=== PATIENT | male | born 1965 | race Caucasian/White ===

== ENCOUNTER → 2017-09-29 | Outpatient (CLI) | payer OTHER ==
[~2017-09-29] MED LIST: AMPH20TA2 PO; ATOR-24 PO; LINA1CAP PO; NXM/40 PO; RANI300T2 PO; TADA20TA PO
--- NOTE | 2017-09-29 09:06 | DIAGNOSTIC IMAGING REPORT ---
THYROID ULTRASONOGRAPHY CLINICAL HISTORY: Enteral thyroid function tests COMPARISON STUDY: No previous studies for comparison. FINDINGS: The right lobe measures 54 x 20 x 27 mm. The left lobe measures 56 x 21 x 25 mm. Both lobes are heterogeneous in echotexture and appear hypervascular. There are no focal masses. The findings are consistent with a thyroiditis. IMPRESSION: Heterogeneous thyroid echotexture with hypervascularity. The findings are suggestive a thyroiditis Electronically signed by: Bobby Capone M.D. 09/29/2017 9:05 AM Dictated Date/Time: 09/29/2017 9:04 AM
== END | disposition home or self-care (01) ==
LOC: C.ULTR 08:24
PROVIDERS: ATTEND Physician Assistant
DX: R94.6 Abnormal results of thyroid function studies (principal)